=== PATIENT | male | born 1955 | race Caucasian/White ===

== ENCOUNTER 2017-06-03 22:21 | Emergency (ER) | payer BC | END 2017-06-03 23:08 | disposition home or self-care (01) | LOC: ER 22:21 | DX: G56.02 Carpal tunnel syndrome, left upper limb (principal); Z88.1 Allergy status to other antibiotic agents | CPT/HCPCS: 29125; 99283 ==

== ENCOUNTER 2017-06-10 08:01 | Emergency (ER) | payer BC ==
[2017-06-10] MEDS: KETOROLAC 60 MG/2 ML INJ. IM (09:04)
== END 2017-06-10 09:26 | disposition home or self-care (01) ==
LOC: ER 08:01
DX: M25.531 Pain in right wrist (principal); R20.0 Anesthesia of skin; R20.2 Paresthesia of skin; Z87.442 Personal history of urinary calculi; Z88.1 Allergy status to other antibiotic agents
CPT/HCPCS: 96372; 99283; J1885